=== PATIENT | female | born 1950 | race Caucasian/White ===

== ENCOUNTER 2023-04-21 11:00 | Emergency (ER) | payer MEDICARE ==
[~2023-04-21] VITALS: Ht 157.5 cm; Wt 75.0 kg
[2023-04-21 11:20] LABS: BASOPHILS # (AUTO) 0.1 X10'3 (0-0.2); EOSINOPHILS % (AUTO) 10.9 % (0-6); HEMATOCRIT 46.3 % (35.0-45.0); HEMOGLOBIN 15.4 g/dl (12.0-16.0); LYMPHOCYTES # (AUTO) 2.5 X10'3 (1.1-4.8); LYMPHOCYTES % (AUTO) 27.2 % (21-51); MEAN CORPUSCULAR HEMOGLOBIN 29.6 PG (27.0-31.0); MEAN CORPUSCULAR HGB CONC 33.2 g/dL (33.0-36.5); MEAN CORPUSCULAR VOLUME 89.1 FL (78-98); MEAN PLATELET VOLUME 9.2 FL (7.4-10.4); MONOCYTES # (AUTO) 0.6 X10'3 (0-0.9); MONOCYTES % (AUTO) 6.8 % (2-12); NEUTROPHILS # (AUTO) 4.9 X10'3 (1.8-7.7); NEUTROPHILS % (AUTO) 54.1 % (42-75); PLATELET COUNT 178 X10'3 (140-440); RED BLOOD COUNT 5.19 X10'6 (4.20-5.60); RED CELL DISTRIBUTION WIDTH 14.3 % (11.5-14.5); WHITE BLOOD COUNT 9.1 X10'3 (4.5-11.0)
[2023-04-21 11:33] LABS: ALANINE AMINOTRANSFERASE 20 U/L (12-78); ALBUMIN 3.6 G/DL (3.4-5.0); ALBUMIN/GLOBULIN RATIO 1.1 (1.1-1.5); ALKALINE PHOSPHATASE 68 IU/L (46-116); ANION GAP 4 (8-16); ASPARTATE AMINO TRANSFERASE 16 U/L (10-37); BILIRUBIN,TOTAL 0.4 MG/DL (0.1-1.0); BLOOD UREA NITROGEN 12 MG/DL (7-18); BUN/CREATININE RATIO 14.1 (10.0-20.0); CALCIUM 9.2 MG/DL (8.5-10.1); CHLORIDE 105 MMOL/L (99-107); CREATININE 0.85 MG/DL (0.40-0.90); GLUCOSE 119 MG/DL (70-104); POTASSIUM 4.5 MMOL/L (3.5-5.1); SODIUM 140 MMOL/L (135-145); eCRCL 49 ML/MIN; eGFR 66 ML/MIN
[2023-04-21 11:35] LABS: PRO BRAIN NATRIURETIC PEPTIDE 233 PG/ML (0-125)
[2023-04-21 14:43] VITALS: TEMP 97.8
[2023-04-21] MEDS ORDERED: iohexol 350MG/ML 100ml bottle IV ONE (15:16)
[2023-04-21] MEDS ORDERED: ipratropium/albuterol 3ml nebule NEB ONE (15:20)
[2023-04-21] MEDS ORDERED: predniSONE 20 mg tablet PO ONE (15:20)
[2023-04-21 16:11] VITALS: PULSE 56; RESP 18; O2SAT 94
[2023-04-21 16:17] VITALS: PULSE 51; RESP 15; O2SAT 100
[2023-04-21] MEDS ORDERED: ALBU18HF2 INH (16:57)
[2023-04-21] MEDS ORDERED: PRED20TA PO (16:57)
[2023-04-21] MEDS ORDERED: AZIT-164 PO (16:57)
[2023-04-21] MEDS ORDERED: methylPREDNISolone sod succ 125mg/2ml vial IV ONE (17:00)
[2023-04-21] MEDS ORDERED: methylPREDNISolone sod succ/PF 40mg inj. IV ONE (17:05)
[2023-04-21 18:44] VITALS: BP 139/73; PULSE 61; RESP 16; O2SAT 95
== END 2023-04-21 18:56 | disposition home or self-care (01) ==
LOC: ER 11:01
DX: J44.1 Chronic obstructive pulmonary disease with (acute) exacerbation (principal); Z20.822 Contact with and (suspected) exposure to COVID-19; Z88.5 Allergy status to narcotic agent; Z79.899 Other long term (current) drug therapy; Z79.2 Long term (current) use of antibiotics
CPT/HCPCS: 36415; 71045; 71275; 80053; 83880; 84484; 85025; 87811; 93005; 94640; 96374; 99285; J2930; J3490; J7512; Q9967; 94760